=== PATIENT | female | born 1995 | race Caucasian/White ===

== ENCOUNTER 2024-02-28 09:16 | Emergency (ER) | payer SELFPAY ==
[2024-02-28 09:22] VITALS: BP 112/72; RESP 19; TEMP 97.9; BMI 21.7
[2024-02-28 09:24] VITALS: PULSE 72
== END 2024-02-28 10:20 | disposition home or self-care (01) ==
LOC: JERFT 09:16
PROC: 3E0T3BZ Introduction of Anesthetic Agent into Peripheral Nerves and Plexi, Percutaneous Approach (ICD-10-PCS; principal; 2024-02-28)
DX: S61.234A Puncture wound without foreign body of right ring finger without damage to nail, initial encounter (principal); W55.01XA Bitten by cat, initial encounter
CPT/HCPCS: 99283-25